=== PATIENT | female | born 1955 | race Caucasian/White ===

== ENCOUNTER 2016-09-17 17:47 | Emergency (ER) | payer MEDICAID, MEDICARE ==
[~2016-09-17] VITALS: Ht 165.1 cm; Wt 60.8 kg
[2016-09-17 17:47] VITALS: BP_SYST 155
--- NOTE | 2016-09-17 17:47 | NUR ---
Patient to ER bed 6 to gown for evaluation. Side rails up. Report given to PILAR Rosas.
--- NOTE | 2016-09-17 18:08 | NUR ---
Patient arrived via BLS in stable condition. Patient states that she has been experiencing generalized weakness x 1 week with elevated blood pressure. Denies any shortness of breath, nausea, vomiting, or chest pain. Denies any pain at this time. No other complaints/injuries per patient or as noted.
[2016-09-17] MEDS ORDERED: NACL 0.9% 1,000 ML IV SCH (18:18)
--- NOTE | 2016-09-17 18:19 | NUR ---
IV Placed, blood work sent to laboratory.
[2016-09-17 18:56] LABS: BILIRUBIN,URINE NEGATIVE (NEGATIVE); BLOOD, URINE NEGATIVE (NEGATIVE); CLARITY/URINE SL HAZY (CLEAR); COLOR,URINE YELLOW (YELLOW); GLUCOSE,URINE NEGATIVE (NEGATIVE); KETONES,URINE NEGATIVE (NEGATIVE); LEUKOCYTE ESTERASE ,URINE NEGATIVE (NEGATIVE); NITRITE, URINE NEGATIVE (NEGATIVE); PH,URINE 6.5 (5.0-8.0); PROTEIN URINE NEGATIVE (NEGATIVE); UROBILINOGEN,URINE 0.2 (0.2-1.0)
[2016-09-17 19:35] LABS: HEMATOCRIT 36.2 % (36-48); HEMOGLOBIN 12.4 g/dL (12.0-16.0); MEAN CORPUSCULAR HEMOGLOBIN 33 pg (27-31); MEAN CORPUSCULAR HGB CONC 34 % (32-36); MEAN CORPUSCULAR VOLUME 94 fL (79.0-98.0); PLATELET COUNT (AUTO) 276 K/uL (130-430); RED BLOOD CELL COUNT(AUTO) 3.83 MIL/uL (4.2-6.2); RED CELL DISTRIBUTION WIDTH 15.2 % (9.0-15.0); WHITE BLOOD COUNT (AUTO) 12.7 K/uL (4.8-10.8)
[2016-09-17 19:44] LABS: CALCIUM 8.9 mg/dL (8.4-11.0); POTASSIUM 3.7 mmol/L (3.5-5.1)
[2016-09-17 19:47] LABS: INR 0.9 (0.8-1.2); PROTHROMBIN TIME 9.9 SECS (9.5-12.5)
[2016-09-17 19:49] LABS: ALBUMIN 3.5 g/dL (3.4-4.8); TOTAL BILIRUBIN 0.4 mg/dL (0.0-1.0); TOTAL PROTEIN, SERUM 6.6 g/dL (6.4-8.3)
[2016-09-17 19:56] LABS: ATYPICAL LYMPHOCYTES % 0 % (0-0); BAND % (MANUAL) 0 % (0-6); BASOPHILS % (MANUAL) 0 % (0-2); EOSINOPHILS % (MANUAL) 12 % (0-7); LYMPHOCYTES % (MANUAL) 24 % (20-46); MONOCYTES % (MANUAL) 6 % (0-11)
--- NOTE | 2016-09-17 20:15 | NUR ---
Patient is stable in bed.
--- NOTE | 2016-09-17 21:00 | NUR ---
Patient is stable given sandwich at juice in bed.
[2016-09-17 22:00] VITALS: BP_SYST 146
--- NOTE | 2016-09-17 22:00 | NUR ---
Patient given written and verbal discharge instructions and verbalizes understanding. ER MD discussed with patient the results and treatment provided. Patient in stable condition. ID arm band removed. IV catheter removed intact and dressing applied, no active bleeding. Rx of MultiVitamin given. Patient educated on pain management and to follow up with PMD in 2 days. Pain Scale 0/10. Patient Signed Homeless Patient Waiver Form. Was given packet on community resources. Patient chose to return to previous living arrangement at [address] [place] [address] in the morning. Opportunity for questions provided and answered.
--- NOTE | 2016-09-18 10:30 | NUR ---
Pt waiting in ER WR. Asked if we could assit her to get a ride home. States that she called a taxi 1 hour ago. Called another taxi for patient.
--- NOTE | 2016-09-18 10:40 | NUR ---
spoke with Deb adminstrator at assisted living in [place] of which pt is resident. States that pt is independent and is allowed to come and go as she pleases and usually leaves with friends for a day or 2. No transportation available to pick her up, only transportation in [facility] [address]. Awaiting taxi.
--- NOTE | 2016-09-18 12:30 | NUR ---
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 Pt states "I didn't call a taxi, I don't have any money". Refused to take taxi home. [employer] Manager called to assist.
--- NOTE | 2016-09-18 13:05 | NUR ---
[facility] called out, pt refusing resources, refused taxi when taxi came. States that a friend was coming to pick her up but states that she didn't call her and doesn't have a cell phone. Eileen ESPINOSA and security to assist. Pt refusing to leave, states that she will sit in ED WR all day. No plan. Shouted "then call the police".
== END 2016-09-17 22:00 | disposition home or self-care (01) ==
LOC: SED 17:47
DX: R53.1 Weakness (principal); Z59.0 Homelessness; I10 Essential (primary) hypertension; Z88.8 Allergy status to other drugs, medicaments and biological substances; Z88.5 Allergy status to narcotic agent; Z91.011 Allergy to milk products
CPT/HCPCS: 36415; 71010; 80053; 81003; 83605; 84484; 85007; 85027; 85610; 85730; 87040; 93005; 96360; 99285; J7030

== ENCOUNTER 2016-09-18 21:29 | Emergency (ER) | payer MEDICARE ==
[~2016-09-18] VITALS: Ht 165.1 cm; Wt 60.8 kg
[2016-09-18 21:30] VITALS: BP 153/73; PULSE 83; RESP 18; TEMP 97.2; O2SAT 98
--- NOTE | 2016-09-18 21:30 | NUR ---
No bed available at this time. Patient stable and placed in waiting room. No acute distress noted, vital signs stable, Will continue to monitor.
--- NOTE | 2016-09-18 22:30 | NUR ---
Patient sitting in waiting room, no acute distress note. Will continue to monitor. Md aware of patient condition.
--- NOTE | 2016-09-19 | NUR ---
Placed in H1.
--- NOTE | 2016-09-19 00:05 | NUR ---
Patient AAO x4, sitting in chair, patient c/o foot swelling. Denies pain. Denies chest pain, denies N/V/D. No acute distress noted. Will continue to monitor.
--- NOTE | 2016-09-19 01:00 | NUR ---
KEVIN Cody at bedside examining patient.
--- NOTE | 2016-09-19 02:20 | NUR ---
Patient states she is stranded and unable to get back home. 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 No taxi vouchers or dial-a-ride vouchers available at this time. Charge nurseMD, and house repairer aware of situation.
[2016-09-19 02:21] VITALS: BP 133/77; PULSE 82; RESP 16; TEMP 97.2; O2SAT 98
--- NOTE | 2016-09-19 02:21 | NUR ---
Patient given written and verbal discharge instructions and verbalizes understanding. ER MD discussed with patient the results and treatment provided. ID arm band removed. No Rx given. Patient educated on pain management and to follow up with PMD. Pain Scale 0/10. Opportunity for questions provided and answered. Patient unable to find transportation at this time. Taxi services unable to be reached at this time. Patient agrees to remain in waiting room until ride is available.
== END 2016-09-19 02:21 | disposition home or self-care (01) ==
LOC: SED 21:29
DX: R60.0 Localized edema (principal); I10 Essential (primary) hypertension; Z88.5 Allergy status to narcotic agent; Z91.011 Allergy to milk products; Z88.8 Allergy status to other drugs, medicaments and biological substances
CPT/HCPCS: 99281